=== PATIENT | male | born 1990 | race Two or more races ===

== ENCOUNTER 2019-01-10 22:21 | Emergency (ER) | payer SELFPAY ==
[~2019-01-10] VITALS: Ht 170.2 cm; Wt 55.9 kg
[2019-01-11 00:04] LABS: BASOPHIL % 0.2 % (0-2); PLATELET COUNT 239 x10^3mcL (130-400); RED CELL DISTRIBUTION WIDTH 12.8 % (11.5-14.5)
[2019-01-11 00:16] LABS: CALCIUM 9.9 mg/dL (8.5-10.1); CARBON DIOXIDE 28.9 mmol/L (21-32); CREATININE SERUM 2.7 mg/dL (0.7-1.3); POTASSIUM SERUM 4.2 mmol/L (3.5-5.1)
[2019-01-11 00:24] LABS: AMPHETAMINE QUAL UR NONE DETECTED (See below)
[2019-01-11 00:34] LABS: ALBUMIN 5.1 g/dL (3.4-5.0); TOTAL PROTEIN, SERUM 9.8 g/dL (6.4-8.2)
[2019-01-11 01:27] VITALS: BP 108/61
== END 2019-01-11 01:27 | disposition home or self-care (01) ==
LOC: ED 22:21
PROVIDERS: Emergency Medicine
DX: R11.10 Vomiting, unspecified (principal); F17.210 Nicotine dependence, cigarettes, uncomplicated; R20.2 Paresthesia of skin
CPT/HCPCS: J2405; J7030